=== PATIENT | female | born 1990 | race Caucasian/White ===

== ENCOUNTER 2019-02-19 07:57 | Inpatient (IN) ==
--- NOTE | 2019-02-05 15:04 | PAT Medication Instructions ---
Medication Instructions Date of Service February 05, 2019 Home Medications duloxetine [Cymbalta] 60 mg PO HS gabapentin 300 mg PO TID Take morning of surgery With a small sip of water, OTHERWISE NOTHING TO EAT OR DRINK AFTER MIDNIGHT: gabapentin 300 mg PO TID Take evening before surgery duloxetine [Cymbalta] 60 mg PO HS gabapentin 300 mg PO TID Other Notes If you have any questions please call us at [phone] or [phone] or [phone] or [phone]
--- NOTE | 2019-02-06 10:42 | Anesthesiology Consultation ---
Date of Service February 06, 2019 Assessment & Plan (1) Encounter for pre-operative examination: Check test AM DOS Chart Review Chart Review: Acceptable Risk for Surgery and Patient seen in Pre Admission Testing Teaching & Discussion Pre-Anesthesia Teaching/Discussion Notes: Instructed NPO after midnight before surgery,except medications with 15 cc of water. Medication instructions p rovided according to the PAT guidelines. History Surgery Operation Date: 02/19/19 12:45 Proposed Procedures p L5-S1 Discectomy with an Instrumented Fusion, Spinal Cord Mointoring - Gama Ryan DO Height/Weight Height: 5 ft 4 in Weight: 126.1 kg Allergies Allergy/AdvReac Type Severity Reaction Status Date / Time Penicillins Allergy Severe CONVULSIONS Verified 02/05/19 13:11 tramadol Allergy HIVES Verified 02/06/19 11:02 Medications Home Medications Medication Instructions Recorded Confirmed Last Taken duloxetine [Cymbalta] 60 mg PO HS 02/05/19 02/05/19 Unknown gabapentin 300 mg PO TID 02/05/19 02/05/19 Unknown Past Medical History Medical History Anemia "BORDERLINE" Anxiety Attention deficit disorder (ADD) Bipolar disorder Degenerative disc disease Depression Morbid obesity Post traumatic stress disorder Scoliosis Exercise / Class Metabolic Activity II 4-5 Yardwork/Stairs/Walk up hill Past Surgical History Surgical History History of section X 2 History of tooth extraction Ovarian cyst REMOVAL Past Anesthesia History No Hx of Anesthesia Complications and No Family Hx of Anesthesia Complications History of PONV No Hx of PONV and No Hx of Motion Sickness Social History Smoking Status: Current every day smoker tobacco type: cigarettes Smoking cigarettes per day: 10 CIGARETTES DAILY; TOTAL X 20 YEARS Do You Dip or Chew Tobacco: No Hx Alcohol Use: Yes alcohol intake frequency: holidays/special occasions only Hx Substance Use: No substance use type: does not use Review of Systems Patient denies chest pain, shortness of breath, dyspnea on exertion, cough, wheezing, palpitations. Physical Exam Vital Signs VITALS BP 103/69 P 86 TEMP 98.5 SP02 97%RA RESP 18 PHYSICAL Full neck and c-spine range of motion. Full TMJ range of motion. TMD 4 finger breaths Mallampati Score 2 Dentition: "broken" molars, several missing sides/molars Lungs: clear throughout to auscultation Cardiac: regular rate and rhythm, no murmurs noted Spine: normal Carotid arteries: negative bruit Extremities: no edema Short neck Testing Laboratory Results 02/06/19 11:30 02/06/19 11:13 PT 10.2 Seconds (9.0-12.0) 02/06/19 11:30 INR 1.0 (0.9-1.1) 02/06/19 11:30 APTT 29.3 Seconds (21.0-31.0) 02/06/19 11:30 Urine Color Dark Yellow 02/06/19 Unknown Urine Appearance Cloudy (Clear) A 02/06/19 Unknown Urine pH 5.0 (4.5-7.5) 02/06/19 Unknown Ur Specific [place] 1.030 (1.000-1.030) 02/06/19 Unknown Urine Protein Negative (Negative) 02/06/19 Unknown Urine Glucose (UA) Negative (Negative) 02/06/19 Unknown Urine Ketones Negative (Negative) 02/06/19 Unknown Urine Nitrite Positive (Negative) A 02/06/19 Unknown Ur Leukocyte Esterase Negative (Negative) 02/06/19 Unknown Urine WBC (Auto) 1-5 /hpf (0-5) 02/06/19 Unknown Urine RBC (Auto) >30 /hpf (0-4) H 02/06/19 Unknown U Hyaline Cast (Auto) 1-5 /lpf (0-5) 02/06/19 Unknown U Epithel Cells (Auto) >30 /lpf (0-5) H 02/06/19 Unknown Urine Bacteria (Auto) 2+ (Negative) H 02/06/19 Unknown Blood Type O Positive 02/06/19 11:30 Antibody Screen NEGATIVE 02/06/19 11:30 02/06/19 Unknown Urine Culture - Final Urine,Clean Catch Three types of organisms present, all high counts. Repeat collection recommended. No further identifications or sensitivities to follow. Surgeon made aware of abnormal UA* Electrocardiogram Date: 02/06/19 Findings: + NSR @ (85) Chest X-Ray Date: 02/06/19 Findings: + NAD Some increased markings in the right medial lung base are felt to be secondary to a vascular summation.
--- NOTE | 2019-02-06 11:43 | XRay Report ---
XR chest Pre-admission PA/Lat CLINICAL HISTORY: Preoperative chest COMPARISON STUDY: No previous studies for comparison. FINDINGS: The cardiac and mediastinal contours are normal. There is no evidence of focal pulmonary co nsolidation. There is no evidence of failure. No pleural effusions are visualized.[Some increased mar kings in the right medial lung base are felt to be secondary to a vascular summation. IMPRESSION: No active disease in the chest. Electronically signed by: Durga Cohen M.D. 02/06/2019 11:41 AM
[2019-02-06 12:09] LABS: Basophils # (auto) 0.03 K/uL (0-0.2); Basophils % (auto) 0.3 %; Eosinophils # (auto) 0.22 K/uL (0-0.5); Eosinophils % (auto) 2.1 %; Hematocrit (blood only) 37.5 % (37-47); Hemoglobin 12.7 g/dL (12.0-16.0); Immature Granulocytes # (auto) 0.03 K/uL (0.00-0.02); Immature Granulocytes % (auto) 0.3 %; Lymphocytes # (auto) 3.29 K/uL (1.2-3.4); Lymphocytes % (auto) 31.8 %; Mean Corpuscular Hgb Conc 33.9 g/dL (32-36); Mean Corpuscular Volume 91.7 fL (80-100); Mean Platelet Volume 9.3 fL (7.4-10.4); Monocytes # (auto) 0.71 K/uL (0.11-0.59); Monocytes % (auto) 6.9 %; Neutrophils # (auto) 6.07 K/uL (1.4-6.5); Neutrophils % (auto) 58.6 %; Platelet Count 407 K/uL (130-400); RDW Coefficient of Variation 14.4 % (11.5-14.5); RDW Standard Deviation 48.9 fL (36.4-46.3); Red Blood Count 4.09 M/uL (4.2-5.4); White Blood Count 10.35 K/uL (4.8-10.8)
[2019-02-06 12:11] LABS: Appearance Urine Cloudy (Clear); Bacteria Urine Automated 2+ (Negative); Bilirubin Urine Negative (Negative); Blood Urine 3+ (Negative); Color Urine Dark Yellow; Epithelial Cell Urine Auto >30 /lpf (0-5); Glucose Urine UA Negative (Negative); Ketones Urine Negative (Negative); Leukocyte Esterase Urine Negative (Negative); Nitrite Urine Positive (Negative); Protein Urine Negative (Negative); RBC Urine Automated >30 /hpf (0-4); Urobilinogen Urine Negative (Negative)
[2019-02-06 12:19] LABS: BUN Creatinine Ratio 23.6 (10-20); Creatinine Clr Calc Pharmacy 131.5 ml/min; Est GFR (African American) 110.4; Est GFR (Non-African American) 95.3
[2019-02-06 12:24] LABS: Partial Thromboplastin Ratio 1.1; Partial Thromboplastin Time 29.3 Seconds (21.0-31.0); Prothrombin Time 10.2 Seconds (9.0-12.0)
[~2019-02-19 07:57] MED LIST: ACETAMINOPHEN 500 MG TAB PO SCH; CLINDAMYCIN 600 MG/54 ML BAG IV SCH; CeleBREX 200 MG CAP PO SCH; GABAPENTIN 600 MG DOSE PO SCH; GABAPENTIN 900 MG DOSE PO SCH; LR 15ML/HR IV SCH; LR 500ML BOLUS IV SCH
[2019-02-19] MEDS ORDERED: MIDAZOLAM HCL 1 MG/ML 2ML VIAL ONE (10:18)
[2019-02-19] MEDS ORDERED: fentaNYL citrate 100 MCG/2 ML VIAL ONE ×5 (10:18→12:25)
--- NOTE | 2019-02-19 10:23 | History & Physical Bridge Note ---
Date of Service February 19, 2019 History & Physical Bridge Note I have examined the patient, reviewed the History & Physical and in the interval since the performance of the History & Physical I have noted the following changes of clinical significance: no changes noted
--- NOTE | 2019-02-19 10:24 | History & Physical Report ---
Date of Service February 19, 2019 Assessment & Plan (1) Lumbar disc herniation with radiculopathy: L5-S1 discectomy with an instrumented fusion Present on Admission?: Yes History of Present Illness Chief Complaint: Back and leg pain Primary Care Provider: NO PCP This is a 28-year-old female with severe back and leg pain here for surgical intervention. Allergies Allergy/AdvReac Type Severity Reaction Status Date / Time Penicillins Allergy Severe CONVULSIONS Verified 02/05/19 13:11 tramadol Allergy HIVES Verified 02/06/19 11:02 Home Medications Home Medications Medication Instructions Recorded Confirmed Type duloxetine [Cymbalta] 60 mg PO HS 02/05/19 02/19/19 History gabapentin 300 mg PO TID 02/05/19 02/19/19 History Past Med/Surg History Medical History Anemia "BORDERLINE" Anxiety Attention deficit disorder (ADD) Bipolar disorder Degenerative disc disease Depression Morbid obesity Post traumatic stress disorder Scoliosis Surgical History History of section X 2 History of tooth extraction Ovarian cyst REMOVAL Social History Preferred Language: Slovenian Communication Ability: Effective [employer] Required: No Beliefs That Will Affect Care: None Current Living Situation: Family Other Information That Helps Us Care for You: No Feels Safe at Home: Yes Safety Concerns: Feels Safe At This Time Smoking Status: Current every day smoker Tobacco Type: cigarettes Cigarettes Per Day: 10 CIGARETTES DAILY; TOTAL X 20 YEARS Do You Dip or Chew Tobacco: No Second Hand Exposure: Yes Tobacco Cessation Education Requested by Patient: No Hx Alcohol Use: Yes Hx Substance Use: No Physical Exam Physical Exam: Patient is alert and oriented neurologically intact. Results & Data Vital Signs (Past 12 Hours) Vital Signs Temp Pulse Resp BP Pulse Ox 02/19/19 08:30 36.6 C 93 H 20 115/85 97
[2019-02-19] MEDS ORDERED: ATROPINE SULFATE 0.1 MG/ML 10ML SYR IV PRN (10:36)
[2019-02-19] MEDS ORDERED: ePHEDrine sulfate 50 MG/ML AMP IV PRN (10:36)
[2019-02-19] MEDS ORDERED: BACITRACIN INJ 50,000 UNIT VIAL ONE (10:41)
[2019-02-19] MEDS ORDERED: BUPIVACAINE/EPINEPHRINE 0.5% MPF 1:200,000 30 ML VIAL ONE (10:41)
[2019-02-19] MEDS ORDERED: HYDROmorphone INJ 2 MG/ML SYR/VIAL ONE ×3 (10:50→12:31)
[2019-02-19] MEDS ORDERED: FLOSEAL HEMOSTATIC MATRIX 10ML TOP ONE (11:45)
[2019-02-19] MEDS ORDERED: ESMOLOL HCL INJ 10 MG/ML 10ML VIAL IV ONE (12:18)
[2019-02-19] MEDS ORDERED: LARYING-O-JET KIT (LTA) ONE (12:18)
[2019-02-19] MEDS ORDERED: GLYCOPYRROLATE 0.2 MG/ML VIAL ONE (12:34)
[2019-02-19] MEDS ORDERED: KETOROLAC 30 MG/ML VIAL ONE (12:34)
[2019-02-19] MEDS ORDERED: DEXAMETHASONE SOD INJ 4 MG/ML VIAL ONE (12:34)
[2019-02-19] MEDS ORDERED: PROPOFOL IV EMULSION 10 MG/ML 20 ML VIAL IV ONE (12:34)
[2019-02-19] MEDS ORDERED: LIDOCAINE HCL 2% 2 ML VIAL/AMP(20MG/ML) INFIL ONE (12:34)
[2019-02-19] MEDS ORDERED: ROCURONIUM BROMIDE 10 MG/ML 5 ML VIAL ONE (12:34)
[2019-02-19] MEDS ORDERED: ONDANSETRON INJ 2 MG/ML 2 ML VIAL ONE (12:34)
[2019-02-19] MEDS ORDERED: NEOSTIGMINE METHYLSULFATE 1 MG/ML 10ML VIAL ONE (12:34)
[2019-02-19] MEDS ORDERED: METOCLOPRAMIDE HCL INJ 5 MG/ML 2 ML VIAL ONE (12:34)
--- NOTE | 2019-02-19 12:45 | Operative Report ---
Post Operative Report Pre & Post Diagnosis Operation Date: 02/19/19 09:55 Pre-Op Diagnosis: Lumbar disc herniation with radiculopathy Morbid obesity Post-Op Diagnosis: Same Procedure Operation Date: 02/19/19 09:55 Actual Procedures #1 lumbar decompression medial facetectomy foraminotomies L5-S1 on the left. #2 posterior spinal fusion L5-S1. #3 placement posterior instrumentation L5-S1. #4 interbody fusion L5-S1. #5 placement of titanium 13 x 26 mm cage at L5-S1 per #6 placement of local autograft in the posterior lateral gutters per #7 placement of infuse collagen sponge master graft in the posterior lateral gutters and ostial amp in the interbody space. Surgeon Gama Ryan, DO Orchid Superintendent Bakari Thornton Estimated Blood Loss 75 Findings See Below Patient is 5 foot 4 inches tall weighing 122 kg with a BMI of 46. The patient's body habitus added significant technical difficulty adding at least 40% increase in operative time. Specimens None Indications This is a 28-year-old female with severe back and left leg pain. After failing extensive course of nonoperative care she like to go the above-mentioned [facility]. Description of Procedure Patient was met with identified and informed consent obtained. She was then taken to the operative suite underwent intubation placed in a prone position Pelon table on top of the [place] frame. All bony prominences well-padded eyes inspected to ensure no external pressure placed upon the peer at this point the lumbar spine was prepped and draped in the normal sterile fashion. Sharp dissection with the assistance of Bovie cautery was performed down to and exposing the lamina and transverse processes of L5 and sacroiliac bilaterally. From caudal to cephalad fashion complete laminectomy of L5 was performed including medial facetectomy foraminotomy on the left. Pedicle screws were then placed in L5 and S1 levels bilaterally with the assistance of fluoroscopy the purposes dior placed. By way of a transforaminal approach on the left complete discectomy was performed endplates curetted to subcortical bleeding bone and a 13 x 22 mm titanium cage filled with osteo-amp bone graft tapped in position. The rods were then compressed locked into final position bilaterally. The transverse processes of L5 and the sacral ala bur to subcortical bleeding bone. Infuse collagen sponge mass graft local autograft placed in the posterior lateral gutters. 15 round JENNA drain inserted. The incision was then closed with 1 Vicryl in the fascia 2-0 Vicryl subcutaneous for Monocryl for final skin closure. Steri-Strip sterile dressings placed. Patient will continue to PACU stable condition. Please note Bakari Thornton present throughout the entire procedure involved in patient positioning complex portions of the surgery and final skin closure. Lastly spinal cord monitoring was utilized throughout the procedure and no changes noted. I attest to the content of the Intraoperative Record and any orders documented therein. Any exceptions are noted below.
[2019-02-19] MEDS: HYDROmorphone INJ 1 MG/ML SYRINGE IV PRN ×2 (13:17→13:24)
--- NOTE | 2019-02-19 13:21 | Fluoroscopy Report ---
INTRAOPERATIVE RADIOGRAPHS CLINICAL HISTORY: L5-S1 spinal fusion. Fluoroscopy time: 20 seconds. FINDINGS: 2 spot fluoroscopic views of the lumbar spine are obtained. There has been discectomy at L5 -S1 with laminectomy and posterior fusion at this level. Interpedicular screws are present at both le vels. The orthopedic hardware appears intact. IMPRESSION: Intraoperative images from L5 -S1 spinal fusion. Electronically signed by: Oumar Marcial M.D. 02/19/2019 1:20 PM
--- NOTE | 2019-02-19 14:36 | Anesthesiology Progress Note ---
Date of Service February 19, 2019 Anesthesia Post Procedure Vital Signs Vital Signs: Temp Pulse Pulse Pulse Resp BP BP 02/19/19 14:25 36.7 C 82 14 139/80 02/19/19 14:10 84 14 125/73 02/19/19 14:06 73 15 106/67 02/19/19 14:05 71 14 02/19/19 14:03 36.6 C 02/19/19 14:02 73 20 02/19/19 14:01 73 14 122/68 02/19/19 14:00 78 16 02/19/19 13:57 86 17 104/64 02/19/19 13:55 74 15 91/45 L 02/19/19 13:52 78 21 02/19/19 13:51 75 19 95/50 L 02/19/19 13:50 76 15 02/19/19 13:45 72 14 99/55 L 02/19/19 13:40 76 21 99/50 L 02/19/19 13:38 75 15 94/54 L 02/19/19 13:36 82 17 80/43 L 02/19/19 13:35 76 12 02/19/19 13:31 78 17 123/69 02/19/19 13:30 80 24 02/19/19 13:26 88 20 02/19/19 13:25 86 20 02/19/19 13:21 91 H 15 139/81 02/19/19 13:20 95 H 19 02/19/19 13:16 93 H 14 142/80 H 02/19/19 13:15 91 H 22 02/19/19 13:14 36.7 C 90 90 22 132/94 132/94 02/19/19 08:30 36.6 C 93 H 20 115/85 Pulse Ox 02/19/19 14:25 97 02/19/19 14:10 97 02/19/19 14:06 97 02/19/19 14:05 96 02/19/19 14:03 97 02/19/19 14:02 98 02/19/19 14:01 95 02/19/19 14:00 98 02/19/19 13:57 98 02/19/19 13:55 97 02/19/19 13:52 98 02/19/19 13:51 99 02/19/19 13:50 98 02/19/19 13:45 95 02/19/19 13:40 98 02/19/19 13:38 98 02/19/19 13:36 99 02/19/19 13:35 100 02/19/19 13:31 100 02/19/19 13:30 100 02/19/19 13:26 100 02/19/19 13:25 94 02/19/19 13:21 99 02/19/19 13:20 97 02/19/19 13:16 100 02/19/19 13:15 100 02/19/19 13:14 99 02/19/19 08:30 97 Pain Intensity Bilateral Back: Pain Intensity: 5 Transfer of Care Handoff Completed per policy Notes Mental Status: alert / awake / arousable Patient Amnestic to Procedure: Yes Nausea / Vomiting: adequately controlled Pain: adequately controlled Airway Patency, RR, SpO2: stable & adequate BP & HR: stable & adequate Hydration State: stable & adequate Anesthetic Complications: no major complications apparent and Pt Satisfied with anesthetic care
[2019-02-19] MEDS ORDERED: BISACODYL 10 MG SUPP PR PRN (14:43)
[2019-02-19] MEDS ORDERED: ACETAMINOPHEN 1,000 MG/100 ML VIAL IV PRN (14:43)
[2019-02-19] MEDS ORDERED: METOCLOPRAMIDE HCL INJ 5 MG/ML 2 ML VIAL IV PRN (14:43)
[2019-02-19] MEDS ORDERED: ONDANSETRON 4 MG TAB PO PRN (14:43)
[2019-02-19] MEDS ORDERED: MAGNESIUM HYDROXIDE SUSP 30 ML UDC PO PRN (14:43)
[2019-02-19] MEDS ORDERED: LORazepam 0.5 MG/1 ML VIAL IV PRN (14:43)
[2019-02-19] MEDS ORDERED: LORazepam 0.5 MG TAB PO PRN (14:43)
[2019-02-19] MEDS ORDERED: SOD PHOSPHATE/SOD BIPHOSPHATE ENEMA 132 ML BTL PR PRN (14:43)
[2019-02-19] MEDS ORDERED: ONDANSETRON INJ 2 MG/ML 2 ML VIAL IV PRN (14:43)
[2019-02-19] MEDS ORDERED: PROMETHAZINE HCL 12.5 MG in SODIUM CHLORIDE 0.9% 50 ML IV PRN (14:43)
[2019-02-19] MEDS ORDERED: ACETAMINOPHEN 500 MG TAB PO PRN (14:43)
[2019-02-19] MEDS ORDERED: FAMOTIDINE 20 MG TAB PO PRN (14:43)
[2019-02-19] MEDS ORDERED: DO NOT ADMINISTER FLU VACCINE PRN (14:43)
[2019-02-19] MEDS ORDERED: DO NOT ADMINISTER PNEUMOCOCCAL VACCINE PRN (14:43)
[2019-02-19] MEDS ORDERED: ALUMINUM/MAGNESIUM SUSP 30 ML UDC PO PRN (14:43)
[2019-02-19] MEDS: GABAPENTIN 300 MG CAP PO SCH ×2 (15:28→20:03)
[2019-02-19] MEDS: KETOROLAC 30 MG/ML VIAL IV SCH (15:28)
[2019-02-19] MEDS: CLINDAMYCIN 600 MG in DEXTROSE 5% 50 ML IV SCH (15:29)
[2019-02-19] MEDS: HYDROmorphone INJ 0.5 MG/0.5 ML SYR IV PRN (16:19)
[2019-02-19] MEDS ORDERED: Nursing to Pharmacy Communication SCH (17:15)
[2019-02-19] MEDS: NICOTINE 14 MG/24 HR PATCH TD SCH (17:39)
[2019-02-19] MEDS: OXYCODONE HCL IR 5 MG TAB (IMMEDIATE RELEASE) PO PRN (17:48)
[2019-02-19] MEDS: LACTATED RINGER'S 1,000 ML IV SCH ×2 (20:01→21:31)
[2019-02-19] MEDS: DOCUSATE SODIUM/SENNA 50/8.6MG TAB PO SCH (20:03)
[2019-02-19] MEDS: DULOXETINE HCL 30 MG CAP PO SCH (20:03)
[2019-02-20] MEDS: KETOROLAC 30 MG/ML VIAL IV SCH ×3 (00:19→13:12)
[2019-02-20] MEDS: LACTATED RINGER'S 1,000 ML IV SCH (02:08)
[2019-02-20] MEDS: CLINDAMYCIN 600 MG in DEXTROSE 5% 50 ML IV SCH (02:08)
[2019-02-20] MEDS: POLYETHYLENE (MIRALAX) 17 GM PACK PO SCH ×4 (05:45→23:53)
[2019-02-20 06:34] LABS: Hematocrit (blood only) 37.2 % (37-47); Hemoglobin 12.4 g/dL (12.0-16.0); Immature Granulocytes # (auto) 0.06 K/uL (0.00-0.02); Immature Granulocytes % (auto) 0.3 %; Lymphocytes # (auto) 2.02 K/uL (1.2-3.4); Lymphocytes % (auto) 11.2 %; Mean Corpuscular Hgb Conc 33.3 g/dL (32-36); Mean Corpuscular Volume 91.6 fL (80-100); Mean Platelet Volume 9.2 fL (7.4-10.4); Monocytes # (auto) 1.27 K/uL (0.11-0.59); Neutrophils # (auto) 14.74 K/uL (1.4-6.5); Neutrophils % (auto) 81.5 %; Platelet Count 375 K/uL (130-400); RDW Coefficient of Variation 13.9 % (11.5-14.5); RDW Standard Deviation 46.1 fL (36.4-46.3); Red Blood Count 4.06 M/uL (4.2-5.4); White Blood Count 18.09 K/uL (4.8-10.8)
[2019-02-20 07:06] LABS: BUN Creatinine Ratio 11.7 (10-20); Calcium 8.8 mg/dl (8.5-10.1); Creatinine Clr Calc Pharmacy 144.6 ml/min; Est GFR (African American) 126.9; Est GFR (Non-African American) 109.5; Potassium 4.4 mmol/L (3.5-5.1)
--- NOTE | 2019-02-20 08:20 | Anesthesiology Progress Note ---
Date of Service February 20, 2019 Anesthesia Post Procedure Vital Signs Vital Signs: Temp Pulse Pulse Pulse Resp BP BP 02/20/19 07:11 36.7 C 68 18 108/68 02/20/19 03:23 36.7 C 75 18 102/63 02/19/19 23:46 36.8 C 89 18 120/72 02/19/19 20:31 100/63 02/19/19 18:46 36.7 C 91 H 18 96/58 L 02/19/19 17:22 36.4 C L 78 18 126/76 02/19/19 16:21 36.7 C 79 18 105/74 02/19/19 15:25 36.5 C 68 17 111/70 02/19/19 14:51 77 16 133/84 02/19/19 14:25 36.7 C 82 14 139/80 02/19/19 14:10 84 14 125/73 02/19/19 14:06 73 15 106/67 02/19/19 14:05 71 14 02/19/19 14:03 36.6 C 02/19/19 14:02 73 20 02/19/19 14:01 73 14 122/68 02/19/19 14:00 78 16 02/19/19 13:57 86 17 104/64 02/19/19 13:55 74 15 91/45 L 02/19/19 13:52 78 21 02/19/19 13:51 75 19 95/50 L 02/19/19 13:50 76 15 02/19/19 13:45 72 14 99/55 L 02/19/19 13:40 76 21 99/50 L 02/19/19 13:38 75 15 94/54 L 02/19/19 13:36 82 17 80/43 L 02/19/19 13:35 76 12 02/19/19 13:31 78 17 123/69 02/19/19 13:30 80 24 02/19/19 13:26 88 20 02/19/19 13:25 86 20 02/19/19 13:21 91 H 15 139/81 02/19/19 13:20 95 H 19 02/19/19 13:16 93 H 14 142/80 H 02/19/19 13:15 91 H 22 02/19/19 13:14 36.7 C 90 90 22 132/94 132/94 07/10/19 08:30 36.6 C 93 H 20 115/85 Pulse Ox 02/20/19 07:11 96 02/20/19 03:23 97 02/19/19 23:46 96 02/19/19 20:31 02/19/19 18:46 95 02/19/19 17:22 95 02/19/19 16:21 97 02/19/19 15:25 94 02/19/19 14:51 96 02/19/19 14:25 97 02/19/19 14:10 97 02/19/19 14:06 97 02/19/19 14:05 96 02/19/19 14:03 97 02/19/19 14:02 98 02/19/19 14:01 95 02/19/19 14:00 98 02/19/19 13:57 98 02/19/19 13:55 97 02/19/19 13:52 98 02/19/19 13:51 99 02/19/19 13:50 98 02/19/19 13:45 95 02/19/19 13:40 98 02/19/19 13:38 98 02/19/19 13:36 99 02/19/19 13:35 100 02/19/19 13:31 100 02/19/19 13:30 100 02/19/19 13:26 100 02/19/19 13:25 94 02/19/19 13:21 99 02/19/19 13:20 97 02/19/19 13:16 100 02/19/19 13:15 100 02/19/19 13:14 99 02/19/19 08:30 97 Notes Mental Status: alert / awake / arousable and participated in evaluation Nausea / Vomiting: adequately controlled Pain: adequately controlled Airway Patency, RR, SpO2: stable & adequate BP & HR: stable & adequate Hydration State: stable & adequate
--- NOTE | 2019-02-20 08:27 | Orthopedic Progress Note ---
Date of Service February 20, 2019 Assessment & Plan (1) Lumbar disc herniation with radiculopathy: This time will initiate physical therapy monitor her JENNA output anticipate discharge home tomorrow. Present on Admission?: Yes Subjective Back pain is controlled leg symptoms markedly improved. Physical Exam Physical Exam: She is good strength testing appears comfortable. Results & Data Vital Signs (Past 12 Hours) Vital Signs Temp Pulse Resp BP Pulse Ox 02/20/19 07:11 36.7 C 68 18 108/68 96 02/20/19 03:23 36.7 C 75 18 102/63 97 02/19/19 23:46 36.8 C 89 18 120/72 96 02/19/19 20:31 100/63
[2019-02-20] MEDS: GABAPENTIN 300 MG CAP PO SCH ×3 (09:35→21:07)
[2019-02-20] MEDS: OXYCODONE HCL IR 5 MG TAB (IMMEDIATE RELEASE) PO PRN ×4 (09:36→23:57)
[2019-02-20] MEDS: NICOTINE 14 MG/24 HR PATCH TD SCH (09:37)
[2019-02-20] MEDS: HYDROmorphone INJ 0.5 MG/0.5 ML SYR IV PRN (19:12)
[2019-02-20] MEDS: DOCUSATE SODIUM/SENNA 50/8.6MG TAB PO SCH (21:07)
[2019-02-20] MEDS: DULOXETINE HCL 30 MG CAP PO SCH (21:08)
[2019-02-21] MEDS: POLYETHYLENE (MIRALAX) 17 GM PACK PO SCH (05:59)
[2019-02-21] MEDS ORDERED: Nursing to Pharmacy Communication ONE (07:58)
[2019-02-21] MEDS: NICOTINE 14 MG/24 HR PATCH TD SCH (08:56)
[2019-02-21] MEDS: OXYCODONE HCL IR 5 MG TAB (IMMEDIATE RELEASE) PO PRN (08:59)
[2019-02-21] MEDS: GABAPENTIN 300 MG CAP PO SCH (08:59)
--- NOTE | 2019-02-21 12:05 | Discharge Summary ---
Date of Service February 21, 2019 Admission HPI Per Admitting Provider This is a 28-year-old female with severe back and leg pain here for surgical intervention. Principal Diagnosis Lumbar spinal stenosis with herniated was pulposis and radiculopathy Discharge Data Allergies Allergy/AdvReac Type Severity Reaction Status Date / Time Penicillins Allergy Severe CONVULSIONS Verified 02/05/19 13:11 tramadol Allergy HIVES Verified 02/06/19 11:02 Consultations 02/19/19 14:43 Consult Case Management - Discharge Planning Routine Procedures Performed Operation Date: 02/19/19 09:55 Actual Procedures p L5-S1 Discectomy with an Instrumented Fusion, Insertion of Interbody,Spinal Cord Mointoring, Application of Bone Morphogenetic Protein(Not Applicable) - Gama Ryan DO Ordered Studies 02/19/19 12:35 FL fluoroscopy <1hr Routine FL lumbar spine 2-3V Routine Hospital Course (1) Lumbar disc herniation with radiculopathy: Patient underwent lumbar decompression fusion tolerated as well as taken to the orthopedic floor postoperatively. Postop day 1 she was up and ambulating per pain well controlled. She progressed to postop day #2. JENNA drain decreasing appropriately. Separately discharged home. Discharge orders and instructions can be found in the chart for further review. Total Time Total Time Spent Total Time Spent (In Minutes): 20 minutes Discharge Plan Discharge Items Patient Disposition: Home - Self-Care Reason For Visit: LUMBAR INTERVERTEBRAL DISC DISORDERS W/RADICULOPAT Discharge Diagnosis: Lumbar disc herniation with radiculopathy Discharge Goals: Decrease discomfort Activity: Per 'Additional Instructions' section Non-emergency contact: Primary Care Provider Call non-emergency contact if: you have any medication questions Follow-up/Referrals: PCP,NO [Primary Care Provider] - Diet: Regular Addtl Provider Instructions: ACTIVITY RECOMMENDATIONS: SELF CARE INSTRUCTIONS AFTER THORACIC/LUMBAR FUSIONS 1. You may walk to your tolerance. It is good exercise for your legs and back. Expect some back and intermittent leg aches and pains. 2. You may perform "counter-top" level activities (make a sandwich, marcelle with a project, etc.). 3. No bending or lifting of more than 10 pounds or back twisting of any nature (roll like a log when turning in bed). 4. You may ride in a car for 20-30 minutes at a time. No driving until after your first visit with your doctor. 5. Frequent changes of position and restricting sitting to 30 minutes at a time will help limit the amount of back spasms and stiffness you may experience. 6. You may discontinue the use of ambulatory aids (cane, crutches, etc.) once your strength and confidence allow. 7. You may insurance professional the shower and let water strike your incision when you arrive home at least once daily. Do not take a tub bath, sit in a hot tub or go into a swimming pool until after your first recheck in the office. SPECIAL CARE INSTRUCTIONS: VERY IMPORTANT TO READ AND REVIEW A. Your surgical incision has been closed with a cosmetic suture under the skin that will dissolve in about 6 weeks. In 14 days, you can use a pair of clean scissors and cut the suture that is left outside of the skin at the ends of your incision. 1. The small skin tapes can be removed 7 days after surgery if they have not fallen off by that point. 2. You may keep the wound open to air as much as possible to promote healing after post-op day number 5 unless told otherwise by your doctor. 3. If you think the wound looks like it is becoming infected (redness or worsening drainage) and/or you are experiencing fever, chill or worsening back pain and muscle spasms, contact the office so that we may evaluate you as soon as possible. B. Complications are uncommon, but please contact us if you have any signs or symptoms of: 1. wound infection (fever higher than 102.5 degrees F, redness, separation of wound, drainage, or increasing pain from the incision) 2. blood clots in legs (pain, swelling, redness and warmth in legs) 3. urinary tract infection (fever higher than 102.5 degrees F, burning upon urination or increased frequency of urination) 4. nerve problems (inability to walk on your toes or heels, numbness, loss of bowel or bladder control) 5. any other symptoms that concern you C. Please call the office at if you have any concerns or questions about your operation or recovery. D. No smoking! Smoking drastically decreases the chance of a solid fusion. E. Do not take any anti-inflammatory medications (Indocin, Advil, Motrin, Aspirin, Naprosyn, etc.) as these may inhibit the chance of a solid fusion. Tylenol is okay to take for pain. MANAGING PAIN AFTER SPINAL SURGERY 1. Narcotic medication is intended for short-term use and will be provided for surgical pain. Surgical pain usually lasts for a period of 4-6 weeks. Narcotic medication includes Percocet, Vicodin, Darvocet, Tylenol #3 or Lortab. 2. Longer-term pain is more appropriately treated with non-narcotic medication such as Tylenol ES. 3. Muscle spasm is not appropriately treated with narcotics. Muscle relaxers such as Soma, Flexeril or Skelaxin can be used along with Tylenol ES. 4. Remember that we all live with some "aches and pains". This is not unusual or uncommon after an injury or as we get older. a. Back pain is expected and may include muscle spasms for 4 to 6 weeks after surgery. The pain should gradually improve. If the pain worsens for no apparent reason, please contact the office. b. Intermittent leg pain may also be experienced and should not be concerned about unless it worsens for no apparent reason. If so, please contact the office. 5. We will provide appropriate medication within the normal guidelines of their prescribed use. We will also be very cautious and aware of potential abuse and extended duration of patients' medication needs. a. Pain medications are for your comfort and to assist with sleep and rest so that the tissue can heal. They are not provided in order to return to normal activity and should not be used through the day. To do so or worsening pain at night can result from ongoing tissue damage and development of tolerance to the prescribed medicine. 6. Please allow 2-3 days to process refills. Prescriptions will not be mailed but must be picked up at the office. FOLLOW UP VISIT: Keep your scheduled follow-up appointment. Any questions, please call the office at . Prescriptions: New oxycodone 5 mg Tablet 5 mg PO Q4H PRN (Reason: Pain) Qty: 30 RF: 0 Continued gabapentin 300 mg Capsule 300 mg PO TID RF: 0 duloxetine [Cymbalta] 30 mg Capsule,Delayed Release(Dr/Ec) 60 mg PO HS RF: 0 Visit Report Forms: Smoking Cessation Stand-Alone Forms: My i[employer], Opio[facility] Pain [facility]/Other Patient Handouts: Safety Back Into and Out Bed, Smoke Why, Quit Smoking Plan Discharge Orders: Discharge Order (Routine); Ordered 02/21/19 Ordered By: Gama Ryan Admission Data Admit Date/Time: 02/19/19 13:52 Attending Provider: Gama Ryan Admit Provider: Gama Ryan Primary Care Provider: PCP,NO Service: Surgical Services Other Interventions: Discharge Summary Assessment (RN) Last Done: 02/21/19 09:08 DC Date/Time DO NOT enter until pt leaves facility: 02/21/19 11:43
== END 2019-02-21 11:43 | disposition home or self-care (01) | DRG 454 ==
LOC: PAT 07:57 → ASU 07:57 → 3E 13:52

== ENCOUNTER 2019-07-24 09:59 | Inpatient (IN) ==
[2019-07-22 15:56] LABS: Basophils # (auto) 0.03 K/uL (0-0.2); Basophils % (auto) 0.2 %; Eosinophils # (auto) 0.24 K/uL (0-0.5); Eosinophils % (auto) 1.8 %; Hemoglobin 13.4 g/dL (12.0-16.0); Immature Granulocytes # (auto) 0.03 K/uL (0.00-0.02); Immature Granulocytes % (auto) 0.2 %; Lymphocytes # (auto) 4.18 K/uL (1.2-3.4); Lymphocytes % (auto) 31.1 %; Mean Corpuscular Hemoglobin 30.3 pg (25-34); Mean Corpuscular Hgb Conc 33.5 g/dL (32-36); Mean Corpuscular Volume 90.5 fL (80-100); Monocytes # (auto) 0.43 K/uL (0.11-0.59); Monocytes % (auto) 3.2 %; Neutrophils # (auto) 8.51 K/uL (1.4-6.5); Neutrophils % (auto) 63.5 %; Platelet Count 451 K/uL (130-400); RDW Coefficient of Variation 14.5 % (11.5-14.5); RDW Standard Deviation 48.1 fL (36.4-46.3); Red Blood Count 4.42 M/uL (4.2-5.4); White Blood Count 13.42 K/uL (4.8-10.8)
[2019-07-22 15:57] LABS: Appearance Urine Cloudy (Clear); Bacteria Urine Automated 4+ (Negative); Bilirubin Urine Negative (Negative); Blood Urine Trace (Negative); Color Urine Yellow; Epithelial Cell Urine Auto >30 /lpf (0-5); Glucose Urine UA Negative (Negative); Ketones Urine Negative (Negative); Leukocyte Esterase Urine Trace (Negative); Nitrite Urine Positive (Negative); Protein Urine Negative (Negative); RBC Urine Automated 0-4 /hpf (0-4); Urobilinogen Urine Negative (Negative)
--- NOTE | 2019-07-22 16:00 | Anesthesiology Consultation ---
Date of Service July 22, 2019 Assessment & Plan (1) Encounter for pre-operative examination: Patient reports she has a piece of glass in her R foot that is to be removed at a surgi-center on 07/23, the day before surgery. Surgeon's office made aware. Chart Review Chart Review: Acceptable Risk for Surgery and Patient seen in Pre Admission Testing Teaching & Discussion Instructed NPO after midnight before surgery, except medications with 15 cc of water. Medication instructions provided according to the PAT guidelines. History Surgery Operation Date: 07/24/19 14:25 Proposed Procedures p L4-L5 Decompression, L4-S1 Fusion, L5-S1 Hardware Removal, Spinal Cord Monitoring - Gama Ryan, Height/Weight Height: 5 ft 4 in Weight: 122 kg Allergies Allergy/AdvReac Type Severity Reaction Status Date / Time Penicillins Allergy Severe CONVULSIONS Verified 07/22/19 15:33 tramadol Allergy Severe HIVES Verified 07/22/19 15:33 Medications Home Medications Medication Instructions Recorded Confirmed Last Taken naproxen sodium [Aleve] 220 mg PO BID PRN 07/22/19 07/22/19 Unknown Past Medical History Medical History (Updated 07/22/19 @ 16:23 by Zachary Bliss) Anemia "BORDERLINE" Anxiety Attention deficit disorder (ADD) hx Bipolar disorder Degenerative disc disease Depression Foreign body Glass in R foot, to have removed 07/23, surgeon's office made aware. Morbid obesity Post traumatic stress disorder Exercise / Class Metabolic Activity III < 4 Walking/Shop/Light housework (Limited mobility 2/2 back pain) Past Family History Family History Grandmother (Maternal) FHx: breast cancer Other No family history of adverse response to anesthesia Past Surgical History Surgical History Fusion of spine lumbar (February 2019) History of bilateral tubal ligation History of section X 2 History of tooth extraction Ovarian cyst REMOVAL Past Anesthesia History No Hx of Anesthesia Complications and No Family Hx of Anesthesia Complications History of PONV No Hx of PONV and No Hx of Motion Sickness Social History Smoking Status: Current every day smoker tobacco type: cigarettes Smoking cigarettes per day: 10 CIGARETTES DAILY; TOTAL X 20 YEARS Hx Alcohol Use: Yes alcohol intake frequency: holidays/special occasions only Hx Substance Use: No substance use type: does not use Review of Systems Pt denies any recent chest pain, shortness of breath, palpitations, fever or URI. +productive cough x 1.5 week +patient reports piece of glass stuck in R foot, to have removed at OP surgical center tomorrow. Pt instructed to make surgeon aware. Physical Exam Vital Signs Last Vital Signs Temp 36.9 C 07/22/19 15:14 Pulse 97 H 07/22/19 15:14 Resp 20 07/22/19 15:14 BP 102/64 07/22/19 15:14 Pulse Ox 98 07/22/19 15:14 Constitutional + morbidly obese ENMT Mouth: + dentition abnormality (few missing) and + chipped teeth; no dental restorations and no loose teeth Thyromental Distance: > or= 3.5 Finger Breadths (3.5) Mallampati Class: II Neck normal visual inspection; neck extension not limited Respiratory normal respiratory effort Auscultation: lungs clear to auscultation bilaterally Cardiovascular Rate/Rhythm: regular rate and regular rhythm Heart Sounds: no murmur Testing Laboratory Results 07/22/19 15:23 07/22/19 15:23 PT 10.3 Seconds (9.0-12.0) 07/22/19 15: INR 1.0 (0.9-1.1) 07/22/19 15: APTT 28.1 Seconds (21.0-31.0) 07/22/19 15:23 Urine Color Yellow 07/22/19 15:23 Urine Appearance Cloudy (Clear) A 07/22/19: Urine pH 7.0 (4.5-7.5) 07/22/19: Ur Specific Seibert 1.020 (1.000-1.030) 07/22/19 15: Urine Protein Negative (Negative) 07/22/19 15: Urine Glucose (UA) Negative (Negative) 07/22/19 15: Urine Ketones Negative (Negative) 07/22/19 15: Urine Nitrite Positive (Negative) A 07/22/19 15:23 Ur Leukocyte Esterase Trace (Negative) H 07/22/19 15:23 Urine WBC (Auto) 5-10 /hpf (0-5) H 07/22/19 15:23 Urine RBC (Auto) 0-4 /hpf (0-4) 07/22/19 15:23 U Hyaline Cast (Auto) 1-5 /lpf (0-5) 07/22/19 15:23 U Epithel Cells (Auto) >30 /lpf (0-5) H 07/22/19 15:23 Urine Bacteria (Auto) 4+ (Negative) H 07/22/19 15:23 *Surgeon's office made aware of + UA and elevated WBC count. Electrocardiogram Date: 02/06/19 Findings: + NSR @ (85bpm) Chest X-Ray Date: 02/06/19 Findings: + NAD
[2019-07-22 16:03] LABS: BUN Creatinine Ratio 15.4 (10-20); Calcium 9.5 mg/dl (8.5-10.1); Creatinine Clr Calc Pharmacy 124.4 ml/min; Est GFR (African American) 105.8; Est GFR (Non-African American) 91.3; Potassium 4.1 mmol/L (3.5-5.1)
[2019-07-22 16:06] LABS: Partial Thromboplastin Time 28.1 Seconds (21.0-31.0); Prothrombin Time 10.3 Seconds (9.0-12.0)
[~2019-07-24 09:59] MED LIST changes: -GABAPENTIN 600 MG DOSE PO SCH; -LR 500ML BOLUS IV SCH
[2019-07-24] MEDS ORDERED: MIDAZOLAM HCL 1 MG/ML 2ML VIAL ONE (10:00)
[2019-07-24] MEDS ORDERED: HYDROmorphone INJ 2 MG/ML SYR/VIAL ONE ×2 (10:00→13:42)
[2019-07-24] MEDS ORDERED: fentaNYL citrate 100 MCG/2 ML VIAL ONE ×7 (10:00→13:41)
--- NOTE | 2019-07-24 11:13 | History & Physical Bridge Note ---
Date of Service July 24, 2019 History & Physical Bridge Note I have examined the patient, reviewed the History & Physical and in the interval since the performance of the History & Physical I have noted the following changes of clinical significance: no changes noted
--- NOTE | 2019-07-24 11:15 | History & Physical Report ---
Date of Service July 24, 2019 Assessment & Plan (1) Lumbar disc herniation with radiculopathy: L4-L5 decompression L4-S1 fusion L5-S1 hardware removal Present on Admission?: Yes History of Present Illness Chief Complaint: Back and bilateral leg pain Primary Care Provider: NO PCP This is a 28-year-old female known to us that presents with significant back and bilateral leg pain after failing extensive course of nonoperative care is here for surgical intervention. Allergies Allergy/AdvReac Type Severity Reaction Status Date / Time Penicillins Allergy Severe CONVULSIONS Verified 07/24/19 10:17 tramadol Allergy Severe HIVES Verified 07/24/19 10:17 Home Medications Home Medications Medication Instructions Recorded Confirmed Type naproxen sodium [Aleve] 220 mg PO BID PRN 07/22/19 07/24/19 History Past Med/Surg History Family History Grandmother (Maternal) FHx: breast cancer Other No family history of adverse response to anesthesia Social History Preferred Language: Vietnamese Communication Ability: Effective Book Reviewer Required: No Beliefs That Will Affect Care: None Current Living Situation: Family Other Information That Helps Us Care for You: No Feels Safe at Home: Yes Safety Concerns: Feels Safe At This Time Smoking Status: Current every day smoker Tobacco Type: cigarettes ; Cigarettes Per Day: 10 CIGARETTES DAILY; TOTAL X 20 YEARS ; Do You Dip or Chew Tobacco: No ; Second Hand Exposure: Yes ; Tobacco Cessation Education Requested by Patient: No Hx Alcohol Use: Yes Hx Substance Use: No Physical Exam Physical Exam: Patient is alert and oriented neurologically intact. Results & Data Vital Signs (Past 12 Hours) Vital Signs Temp Pulse Resp BP Pulse Ox 07/24/19 10:22 36.8 C 79 20 103/70 95
[2019-07-24] MEDS ORDERED: BUPIVACAINE/EPINEPHRINE 0.5% MPF 1:200,000 10 ML VIAL ONE (11:24)
[2019-07-24] MEDS ORDERED: BACITRACIN INJ 50,000 UNIT VIAL ONE (11:24)
[2019-07-24] MEDS ORDERED: ePHEDrine sulfate 50 MG/ML AMP IV PRN (11:29)
[2019-07-24] MEDS ORDERED: fentaNYL citrate 100 MCG/2 ML VIAL IV PRN (11:29)
[2019-07-24] MEDS ORDERED: ONDANSETRON INJ 2 MG/ML 2 ML VIAL IV PRN ×2 (11:29→15:33)
[2019-07-24] MEDS ORDERED: PROMETHAZINE HCL 12.5 MG in SODIUM CHLORIDE 0.9% 50 ML IV PRN ×2 (11:29→15:33)
[2019-07-24] MEDS ORDERED: HYDROmorphone INJ 2 MG/ML SYR/VIAL IV PRN (11:29)
[2019-07-24] MEDS ORDERED: METOCLOPRAMIDE HCL INJ 5 MG/ML 2 ML VIAL IV PRN ×2 (11:29→15:33)
[2019-07-24] MEDS ORDERED: DEXAMETHASONE SOD INJ 4 MG/ML VIAL IV PRN (11:29)
[2019-07-24] MEDS ORDERED: ATROPINE SULFATE 0.1 MG/ML 10ML SYR IV PRN (11:29)
[2019-07-24] MEDS ORDERED: FLOSEAL HEMOSTATIC MATRIX 10ML TOP ONE (12:40)
[2019-07-24] MEDS ORDERED: ONDANSETRON INJ 2 MG/ML 2 ML VIAL ONE ×2 (12:47→14:30)
[2019-07-24] MEDS ORDERED: LIDOCAINE HCL 2% 2 ML VIAL/AMP(20MG/ML) INFIL ONE (12:47)
[2019-07-24] MEDS ORDERED: KETOROLAC 30 MG/ML VIAL ONE (12:47)
[2019-07-24] MEDS ORDERED: GLYCOPYRROLATE 0.2 MG/ML VIAL ONE (12:47)
[2019-07-24] MEDS ORDERED: ROCURONIUM BROMIDE 10 MG/ML 5 ML VIAL ONE (12:47)
[2019-07-24] MEDS ORDERED: NEOSTIGMINE METHYLSULFATE 1 MG/ML 10ML VIAL ONE (12:47)
[2019-07-24] MEDS ORDERED: PROPOFOL IV EMULSION 10 MG/ML 20 ML VIAL IV ONE (12:47)
[2019-07-24] MEDS ORDERED: DEXAMETHASONE SOD INJ 4 MG/ML VIAL ONE (12:47)
[2019-07-24] MEDS ORDERED: LARYING-O-JET KIT (LTA) ONE (13:26)
--- NOTE | 2019-07-24 13:58 | Fluoroscopy Report ---
FL lumbar spine 2-3V CLINICAL HISTORY: 28 years-old Female presenting with L5-S1 REMOVE HAREWARE/L4-S1 DECOMPRESSION/FUSIO N/INTERBODY. TECHNIQUE: 2 fluoroscopic image(s) recorded as part of an intraoperative procedure. COMPARISON: 02/19/2019. FINDINGS/IMPRESSION: There has been interval removal of the prior L5-S1 posterior fusion hardware and placement of posteri or bilateral transpedicular screw and dior fixation of L4-S1 with interbody spacers at L4-5 and L5-S1 and laminectomy defects at L4-L5. Normal anatomic alignment. No gross hardware breakage. Please see surgical report for further details. Fluoroscopy dosage (mGy): 9.98. Fluoroscopy time: 10.4 seconds. Number or time of high level fluoroscopy (HLF), digital spot, or digital subtraction images: 0. Electronically signed by: Jeremiah Romero M.D. 07/24/2019 1:56 PM
[2019-07-24] MEDS ORDERED: BUPIVACAINE 0.5 % 5 MG/1 ML PF 10ML VIAL ONE (14:06)
--- NOTE | 2019-07-24 14:22 | Fluoroscopy Report ---
FL foot RT 2V CLINICAL HISTORY: RT FOOT GLASS REMOVAL COMPARISON STUDY: None FLUOROSCOPY TIME: 28 seconds. NUMBER OF FLUOROSCOPIC IMAGES: 2 FINDINGS: 2 lateral fluoroscopic spot images are provided for interpretation. Bony and soft tissue de tail is limited. The first image demonstrates a faint radiopaque foreign body within the plantar soft tissues anteriorly. On the second view, the previously described foreign body is not visualized with certainty. IMPRESSION: Limited soft tissue and bony detail. Apparent removal of a faint radiopaque foreign body within the plantar soft tissues anteriorly Electronically signed by: Durga Cohen M.D. 07/24/2019 2:21 PM
--- NOTE | 2019-07-24 14:22 | Operative Report ---
Post Operative Report Pre & Post Diagnosis Operation Date: 07/24/19 11:45 Pre-Op Diagnosis: LUMBAR IV DISC DISORDERS W/RADICULOPATHY Foreign body right foot Morbid obesity Post-Op Diagnosis: Same I identified the patient and participated in the time-out.: Yes Procedure Operation Date: 07/24/19 11:45 Actual Procedures #1 removal of posterior instrumentation L5-S1. #2 exploration of fusion L5-S1. #3 lumbar decompression with bilateral medial facetectomies and foraminotomies L4-5. #4 posterior spinal fusion L4-5 per #5 placed posterior instrumentation L4-5 L5-S1. #6 interbody fusion L4-5 per #7 placement of titanium cage 13 x 26 mm at L4-5. #8 placement of locally harvested morselized autograft and posterior gutters. #9 placement infuse collagen sponge master graft in the posterior lateral gutters and ostial amp and interbody space. #10 removal of foreign body in the right foot. Surgeon Gama Ryan, Store Standards Associate Josefa Emery Estimated Blood Loss 175 Findings See Below Patient is 5 foot 4 inches tall weighing over 121 kg with a BMI of 46. Patient's body habitus did add significant technical difficulty throughout the procedure requiring her longest instruments and deepest retractors in order to perform her procedure. This added at least 50% increase in operative time. Specimens Foreign body right foot Indications This is a 28-year-old female that presents with above-mentioned diagnosis after failing course of nonoperative care elected to go the beverage procedure. Description of Procedure Patient was met with identified informed consent obtained. Patient was then taken to the operative suite underwent intubation placed in the prone position the Pelon table on top of the Eleno frame. All bony prominences well-padded eyes inspected to ensure no external pressure placed upon them. This point the lumbar spine was prepped and draped in normal sterile fashion. Sharp dissection with the assistance of Bovie cautery was performed down to and exposing the lamina and transverse processes of L4 and the instrumentation L5-S1 bilaterally. Then proceeded move the hardware bilaterally exploring the fusion mass. It was still immature. I then performed a complete laminectomy of L4 including bilateral medial facetectomies foraminotomies as well as addressing the massive disc herniation at 4 5 on the right. Pedicle screws were then placed in L4-L5 and S1 levels bilaterally with assistance of fluoroscopy the purposes dior placed. By way of a transforaminal approach on the right complete discectomy was performed endplates curetted to subcortical bleeding bone and a 13 x 26 mm titanium cage filled with ostium bone graft tapped in position. The rods were then locked in final position bilaterally. The transverse processes of L4 and L5 bur to subcortical bleeding bone. Infuse collagen sponge master graft and lo zena autograft placed in the posterior lateral gutters. 15 round JENNA drain inserted. Incision was then closed with 1 Vicryl the fascia 2-0 Vicryl subcutaneously and 4 Monocryl for final skin closure. Steri-Strips dressings placed. Please note Josefa Emery was present at the entire procedure involved in patient positioning complex portions of the surgery and final skin closure. Lastly spinal cord monitoring was utilized that the procedure no changes noted. Prior to waking up the patient I did prepped and draped the right foot and made approximately 1 cm incision over the third and second web space and with the right with the assistance of fluoroscopy and removed a approximately 1-1/2 cm sliver of glass foreign body in the right foot. The small incision was closed with 3-0 nylon and the foot was placed in a sterile dressing. The patient was then awakened and taken to PACU in stable condition. I attest to the content of the Intraoperative Record and any orders documented therein. Any exceptions are noted below.
[2019-07-24] MEDS ORDERED: BUPIVACAINE 0.5 % 5 MG/1 ML MPF 30ML VIAL INFIL SCH (14:30)
[2019-07-24] MEDS ORDERED: METOCLOPRAMIDE HCL INJ 5 MG/ML 2 ML VIAL ONE (14:30)
[2019-07-24] MEDS ORDERED: NALOXONE HCL 0.4 MG/1 ML VIAL/CARP IV PRN (15:33)
[2019-07-24] MEDS ORDERED: MAGNESIUM HYDROXIDE SUSP 30 ML UDC PO PRN (15:33)
[2019-07-24] MEDS ORDERED: HYDROmorphone INJ 0.5 MG/0.5 ML SYR IV PRN (15:33)
[2019-07-24] MEDS ORDERED: HYDROmorphone INJ 1 MG/ML SYRINGE IV PRN (15:33)
[2019-07-24] MEDS ORDERED: bisacodyL 10 MG SUPP PR PRN (15:33)
[2019-07-24] MEDS ORDERED: ONDANSETRON 4 MG OD TAB PO PRN (15:33)
[2019-07-24] MEDS ORDERED: ACETAMINOPHEN 500 MG TAB PO PRN (15:33)
[2019-07-24] MEDS ORDERED: FAMOTIDINE 20 MG TAB PO PRN (15:33)
[2019-07-24] MEDS ORDERED: SOD PHOSPHATE/SOD BIPHOSPHATE ENEMA 132 ML BTL PR PRN (15:33)
[2019-07-24] MEDS ORDERED: ACETAMINOPHEN 1,000 MG/100 ML VIAL IV PRN (15:33)
[2019-07-24] MEDS ORDERED: DO NOT ADMINISTER FLU VACCINE PRN (15:33)
[2019-07-24] MEDS ORDERED: LORazepam 0.5 MG/1 ML VIAL IV PRN (15:33)
[2019-07-24] MEDS ORDERED: DO NOT ADMINISTER PNEUMOCOCCAL VACCINE PRN (15:33)
[2019-07-24] MEDS ORDERED: ALUMINUM/MAGNESIUM SUSP 30 ML UDC PO PRN (15:33)
[2019-07-24] MEDS ORDERED: LORazepam 0.5 MG TAB PO PRN (15:33)
--- NOTE | 2019-07-24 15:35 | Anesthesiology Progress Note ---
Date of Service July 24, 2019 Anesthesia Post Procedure Vital Signs Vital Signs: Temp Pulse Pulse Resp BP BP Pulse Ox 07/24/19 15:05 36.3 C L 33 L 14 96/52 L 95 07/24/19 14:55 66 12 95/45 L 96 07/24/19 14:40 69 15 88/44 L 98 07/24/19 14:30 77 14 106/59 L 100 07/24/19 14:22 36.2 C L 79 13 100/51 L 100 07/24/19 10:22 36.8 C 79 20 103/70 95 Pain Intensity Lower Back: Pain Intensity: 9 Transfer of Care Handoff Completed per policy Notes Mental Status: alert / awake / arousable and participated in evaluation Patient Amnestic to Procedure: Yes Nausea / Vomiting: adequately controlled Pain: adequately controlled Airway Patency, RR, SpO2: stable & adequate BP & HR: stable & adequate Hydration State: stable & adequate Anesthetic Complications: no major complications apparent
[2019-07-24] MEDS: LACTATED RINGER'S 1,000 ML IV SCH (17:52)
[2019-07-24] MEDS: NICOTINE 14 MG/24 HR PATCH TD SCH (18:43)
[2019-07-24] MEDS: KETOROLAC 30 MG/ML VIAL IV SCH ×2 (18:44→23:41)
[2019-07-24] MEDS: CLINDAMYCIN 600 MG in DEXTROSE 5% 50 ML IV SCH (20:49)
[2019-07-24] MEDS: OXYCODONE HCL IR 5 MG TAB (IMMEDIATE RELEASE) PO PRN (20:49)
[2019-07-24] MEDS: DOCUSATE SODIUM/SENNA 50/8.6MG TAB PO SCH (20:50)
[2019-07-25] MEDS: LACTATED RINGER'S 1,000 ML IV SCH ×2 (02:07→06:39)
[2019-07-25] MEDS: CLINDAMYCIN 600 MG in DEXTROSE 5% 50 ML IV SCH (03:12)
[2019-07-25 06:04] LABS: Basophils # (auto) 0.01 K/uL (0-0.2); Basophils % (auto) 0.1 %; Hematocrit (blood only) 32.6 % (37-47); Hemoglobin 10.8 g/dL (12.0-16.0); Immature Granulocytes # (auto) 0.07 K/uL (0.00-0.02); Immature Granulocytes % (auto) 0.4 %; Lymphocytes # (auto) 2.19 K/uL (1.2-3.4); Lymphocytes % (auto) 12.6 %; Mean Corpuscular Hemoglobin 29.7 pg (25-34); Mean Corpuscular Hgb Conc 33.1 g/dL (32-36); Mean Corpuscular Volume 89.6 fL (80-100); Monocytes % (auto) 5.7 %; Neutrophils # (auto) 14.18 K/uL (1.4-6.5); Neutrophils % (auto) 81.2 %; Platelet Count 362 K/uL (130-400); RDW Coefficient of Variation 14.5 % (11.5-14.5); RDW Standard Deviation 47.9 fL (36.4-46.3); Red Blood Count 3.64 M/uL (4.2-5.4); White Blood Count 17.45 K/uL (4.8-10.8)
[2019-07-25] MEDS: KETOROLAC 30 MG/ML VIAL IV SCH ×2 (06:14→12:45)
[2019-07-25] MEDS: POLYETHYLENE (MIRALAX) 17 GM PACK PO SCH ×4 (06:16→23:32)
[2019-07-25 06:34] LABS: BUN Creatinine Ratio 20.5 (10-20); Calcium 8.9 mg/dl (8.5-10.1); Creatinine Clr Calc Pharmacy 150.4 ml/min; Est GFR (African American) 133.4; Est GFR (Non-African American) 115.1; Potassium 4.7 mmol/L (3.5-5.1)
--- NOTE | 2019-07-25 07:56 | Anesthesiology Progress Note ---
Date of Service July 25, 2019 Anesthesia Post Procedure Vital Signs Vital Signs: Temp Pulse Pulse Pulse Pulse Resp BP 07/25/19 03:21 36.7 C 56 L 16 07/24/19 23:37 36.9 C 77 16 108/73 07/24/19 18:41 36.9 C 77 16 07/24/19 17:24 36.2 C L 82 16 07/24/19 16:23 36.6 C 67 16 07/24/19 16:04 36.4 C L 72 16 07/24/19 15:20 36.5 C 84 12 07/24/19 15:05 36.3 C L 63 14 07/24/19 14:55 66 12 07/24/19 14:40 69 15 07/24/19 14:30 77 14 07/24/19 14:22 36.2 C L 79 13 07/24/19 10:22 36.8 C 79 20 103/70 BP Pulse Ox 07/25/19 03:21 113/71 98 07/24/19 23:37 96 07/24/19 18:41 105/67 93 07/24/19 17:24 107/72 99 07/24/19 16:23 103/67 98 07/24/19 16:04 104/68 99 07/24/19 15:20 98/62 L 97 07/24/19 15:05 96/52 L 95 07/24/19 14:55 95/45 L 96 07/24/19 14:40 88/44 L 98 07/24/19 14:30 106/59 L 100 07/24/19 14:22 100/51 L 100 07/24/19 10:22 95 Pain Intensity Lower Back: Pain Intensity: 6 Notes Mental Status: alert / awake / arousable and participated in evaluation Patient Amnestic to Procedure: Yes Nausea / Vomiting: adequately controlled Pain: adequately controlled Airway Patency, RR, SpO2: stable & adequate BP & HR: stable & adequate Hydration State: stable & adequate Anesthetic Complications: no major complications apparent and Pt Satisfied with anesthetic care
[2019-07-25] MEDS: NICOTINE 14 MG/24 HR PATCH TD SCH (09:15)
[2019-07-25] MEDS: OXYCODONE HCL IR 5 MG TAB (IMMEDIATE RELEASE) PO PRN ×4 (09:28→21:54)
--- NOTE | 2019-07-25 10:14 | Orthopedic Progress Note ---
Date of Service July 25, 2019 Assessment & Plan (1) Lumbar disc herniation with radiculopathy: Patient's pain is well controlled. We will continue with physical therapy monitor JENNA output anticipate discharge home this weekend. Present on Admission?: Yes Subjective Back pain controlled leg pain improved. Physical Exam Physical Exam: Patient is good strength testing appears comfortable. Results & Data Vital Signs (Past 12 Hours) Vital Signs Temp Pulse Pulse Pulse Resp BP BP 07/25/19 08:00 36.6 C 72 17 122/62 07/25/19 03:21 36.7 C 56 L 16 113/71 07/24/19 23:37 36.9 C 77 16 108/73 Pulse Ox 07/25/19 08:00 93 07/25/19 03:21 98 07/24/19 23:37 96
[2019-07-25] MEDS: DOCUSATE SODIUM/SENNA 50/8.6MG TAB PO SCH (20:37)
[2019-07-26] MEDS: POLYETHYLENE (MIRALAX) 17 GM PACK PO SCH ×4 (06:21→23:21)
[2019-07-26] MEDS: OXYCODONE HCL IR 5 MG TAB (IMMEDIATE RELEASE) PO PRN ×4 (07:53→22:00)
[2019-07-26] MEDS: NICOTINE 14 MG/24 HR PATCH TD SCH (07:54)
--- NOTE | 2019-07-26 10:38 | Orthopedic Progress Note ---
Date of Service July 26, 2019 Assessment & Plan (1) Lumbar disc herniation with radiculopathy: This time continue physical therapy monitor her JENNA output anticipate discharge home tomorrow. Present on Admission?: Yes Subjective Back pain controlled leg symptoms improved. Physical Exam Physical Exam: Patient is good strength testing. Appears comfortable. Results & Data Vital Signs (Past 12 Hours) Vital Signs Temp Pulse Resp BP BP Pulse Ox 07/26/19 07:53 36.9 C 74 16 105/55 L 98 07/25/19 23:47 36.9 C 77 14 137/71 96
[2019-07-26] MEDS ORDERED: CIPROFLOXACIN 500 MG TAB PO SCH (14:00)
[2019-07-26] MEDS: CIPROFLOXACIN 250 MG TAB PO SCH ×2 (14:14→19:29)
[2019-07-26] MEDS: DOCUSATE SODIUM/SENNA 50/8.6MG TAB PO SCH (19:29)
[2019-07-27] MEDS: POLYETHYLENE (MIRALAX) 17 GM PACK PO SCH (05:40)
[2019-07-27] MEDS: OXYCODONE HCL IR 5 MG TAB (IMMEDIATE RELEASE) PO PRN (05:42)
[2019-07-27 07:04] VITALS: TEMP 98.6; O2SAT 96
--- NOTE | 2019-07-27 08:30 | Discharge Summary ---
Date of Service July 27, 2019 Admission HPI Per Admitting Provider This is a 28-year-old female known to us that presents with significant back and bilateral leg pain after failing extensive course of nonoperative care is here for surgical intervention. Discharge Data Consultations 07/24/19 15:33 Consult Case Management - Discharge Planning Routine Procedures Performed Operation Date: 07/24/19 11:45 Actual Procedures p L4-L5 Decompression, L4-S1 Fusion, Interbody Fusion L4-L5, Use of Osteoamp and Infuse, Spinal Cord Monitoring(Not Applicable) - DO lauri Tucker Exploration and Retrieval Foreign Body Right Foot (Right) - DO lauri Tucker L5-S1 Hardware Removal, (Not Applicable) - Gama Ryan DO Hospital Course (1) Lumbar disc herniation with radiculopathy: Patient is a 28-year-old female with history physical examination radiographic images consistent with the above-mentioned diagnosis. For this reason she brought to the operating room underwent removal of hardware L5-S1 decompression fusion from L4 to the sacrum. She did well with the surgery she left the operating with JENNA drain Bolden in place and transferred to PACU in stable condition. She is given GI DVT prophylaxis transfer to the orthopedic floor. She is seen by physical therapy postop day 1 for ambulation gait training. Throughout her hospital course her calves remained supple and nontender dressings remain clean dry and intact. She was deemed safe for home discharge today. We reviewed her discharge orders in detail. She is to call the office if she develops a fever or any increased pain or drainage from the incision. Otherwise we will see her in the office in 2 weeks.
[2019-07-27] MEDS: CIPROFLOXACIN 250 MG TAB PO SCH (09:53)
[2019-07-27] MEDS: NICOTINE 14 MG/24 HR PATCH TD SCH (09:54)
[2019-07-27 10:00] VITALS: BP 135/83; PULSE 64
== END 2019-07-27 10:20 | disposition home or self-care (01) | DRG 454 ==
LOC: ASU 09:59 → 3E 14:44
DX: S91.341A Puncture wound with foreign body, right foot, initial encounter; W25.XXXA Contact with sharp glass, initial encounter; Z88.5 Allergy status to narcotic agent; Z88.0 Allergy status to penicillin; E66.01 Morbid (severe) obesity due to excess calories; M51.16 Intervertebral disc disorders with radiculopathy, lumbar region; W45.8XXA Other foreign body or object entering through skin, initial encounter; Z68.42 Body mass index [BMI] 45.0-49.9, adult; F17.210 Nicotine dependence, cigarettes, uncomplicated; Z98.1 Arthrodesis status